=== PATIENT | male | born 1935 | race Caucasian/White ===

== ENCOUNTER → 2016-09-15 | Day surgery (SDC) | payer MEDICARE, OTHER ==
[~2016-09-15] MED LIST: ALBUTEROL17 GM INH; ASPIRIN81 M2 PO; ATORVASTATIN CA20 MG PO; BENAZEPRIL HCL5 MG PO; BREO ELLIPTA 11 EACH INH; COMBIVENT U/D3 M1 INH; FENOFIBRATE48 MG PO; FENOGLIDE40 MG PO; FISH OIL500 M2 PO; GLIMEPIRIDE2 MG PO; GLUCOPHAGE500 M1 PO; HUMALOG MI100 UNIT/1 INJ; LASIX20 MG PO; LOVASTATIN20 M2 PO; MELATONIN1 MG PO; OXYGEN; PROAIR HFA8.5 GM INH; SPIRIVA18 MCG INH; TRAMADOL HCL50 M2 PO; TYLENOL325 M1 PO; ZANAFLEX2 M1 PO
--- NOTE | ~2016-09-15 | OR ---
Unit #: [id number] #: [id number] Patient: JEANIE NORRIS [id number] [address] [place], [place] [address] [id number] O MR#: [id number] NAME: JEANIE NORRIS. ROOM: Date of Procedure: 09/15/2016 Admission Date: 09/15/2016 Surgeon: Flip Dueñas M.D. : 1935 Attending Physician: Flip Dueñas M.D. Primary Care Physician: Adrianne Narvaez M.D. 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 PROCEDURE PERFORMED Stellate ganglion block with intravenous sedation and fluoroscopic guidance for needle localization. INDICATIONS FOR PROCEDURE The patient is a 81-year-old with previously mentioned diagnosis. Plan is for trial of stellate ganglion blocks to help address the symptoms affecting his upper extremity. This is a secondary issue with cervical radicular issues with that right arm as well, but I believe his CRPS is most significant component. The patient has failed conservative treatment. Plan is for trial of stellate ganglion blockade with continued range of motion and desensitization treatment. DESCRIPTION OF PROCEDURE The patient was placed in a supine position. Standard monitors were applied. 2 mg of Versed were given for sedation and anxiolysis, which were adequate. Vital signs remained stable. Sterile prep and drape then of the right aspect of the neck was performed. The skin overlying the C7 tubercle was localized with 1% lidocaine. A 22-gauge Quincke-point needle was advanced down to the tubercle. The patient had no complaints of pain or paresthesia. Needle was backed off few millimeters with negative intermittent aspiration and intermittent repositioning. A total a 10 mL of 0.25% bupivacaine were deposited. There was negative intermittent aspiration with injection every 2 mL. The patient tolerated the procedure otherwise well and was discharged to the recovery room in stable condition. Dictated by... Rohini Maloney/kendra TD: 09/15/2016 23:19 JOB #: [id number] Unit #: [id number] #: [id number] Patient: JEANIE NORRIS OPERATIVE REPORT X Flip Dueañs MD X PROCEDURE OPERATIVE NOTE
== END | disposition home or self-care (01) ==
LOC: CCSC 09:05
DX: G90.511 Complex regional pain syndrome I of right upper limb (principal); E11.9 Type 2 diabetes mellitus without complications; Z79.4 Long term (current) use of insulin; J44.9 Chronic obstructive pulmonary disease, unspecified
CPT/HCPCS: J2250

== ENCOUNTER → 2016-10-29 | Day surgery (SDC) | payer MEDICARE, OTHER ==
--- NOTE | ~2016-10-29 | OR ---
Unit #: [id number] #: [id number] Patient: JEANIE NORRIS [id number] [address] [address] [id number] O MR#: [id number] NAME: JEANIE NORRIS ROOM: Date of Procedure: 10/29/2016 Admission Date: 10/29/2016 Surgeon: Flip Dueñas M.D. : 1935 Attending Physician: Flip Dueñas M.D. Primary Care Physician: Julian Ferrer Jr., M.D. 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 POSTOPERATIVE DIAGNOSIS Complex regional pain syndrome of right upper extremity. PROCEDURE PERFORMED Stellate ganglion blockade with fluoroscopic guidance and intravenous sedation. 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 He has failed to settle with conservative treatment. The patient had trial of initial sympathetic block via stellate approach about 6 weeks ago. The patient did actually fairly well for about 3 weeks and then had returned to baseline. Typically patients with this do better with a series of injections. Hopefully, we will see better additive prolonged response with this. DESCRIPTION OF PROCEDURE The patient was placed in a supine position. Standard monitors were applied. A sterile prep of the right anterior aspect of his neck was performed. The skin then overlying the C6 tubercle was localized with 1% lidocaine. A 25-gauge Quincke point needle was then advanced down to the C6 tubercle backed over few millimeters with negative intermittent aspiration. A total a 10 mL of 0.25% bupivacaine were deposited. The patient tolerated the procedure otherwise well and was discharged to the recovery room in stable condition. Dictated by... Flip Dueñas M.D. LHP/kendra TD: 10/29/2016 08:38 JOB #: [id number] CC: [facility] Unit #: [id number] #: [id number] Patient: JEANIE NORRIS OPERATIVE REPORT Page 1 of 1 X Flip Dueñas MD X PROCEDURE OPERATIVE NOTE
== END | disposition home or self-care (01) ==
LOC: CCSC 06:55
DX: G90.511 Complex regional pain syndrome I of right upper limb (principal)
CPT/HCPCS: 82947; J2250

== ENCOUNTER → 2016-11-19 | Day surgery (SDC) | payer MEDICARE, OTHER ==
--- NOTE | ~2016-11-19 | OR ---
Unit #: [id number] #: [id number] Patient: JEANIE NORRIS [id number] [address] [place], [place] [address] [id number] O MR#: [id number] NAME: JEANIE NORRIS ROOM: Date of Procedure: 11/19/2016 Admission Date: 11/19/2016 Surgeon: Flip Dueñas M.D. : 1935 Attending Physician: Flip Dueñas M.D. Primary Care Physician: Julian Ferrer Jr., M.D. OPERATIVE REPORT PREOPERATIVE DIAGNOSES 1. Chronic regional pain syndrome, upper extremity. 2. Cervical disk herniation. POSTOPERATIVE DIAGNOSES 1. Chronic regional pain syndrome, upper extremity. 2. Cervical disk herniation. PROCEDURE PERFORMED Stellate ganglion injection with intravenous sedation and fluoroscopic guidance for needle localization. INDICATIONS FOR PROCEDURE The patient is a 81-year-old male with significant right upper extremity pain. This constellation of symptoms seem most consistent with CRPS diagnosis. He was given 2 stellate ganglion injections at this point over the last several weeks. He has increased range of motion. His fingers and the skin looks healthy. There was less hypersensitivity, but still has significant pain in his shoulder down to his elbow, may be overlapping symptoms associated with his cervical disk as well. We are going to proceed with a repeat stellate ganglion block at this point. Depending upon his response of the upper arm, we may look at a trial of epidural steroids. DESCRIPTION OF PROCEDURE The patient was placed in a supine position. Standard monitors were applied. 2 mg of Versed were given for sedation and anxiolysis, which were adequate. Vital signs remained stable. Sterile prep and drape then of the anterior aspect of the neck was performed on the right. The skin overlying the C6 tubercle was localized with 1% lidocaine. A 22-gauge Quincke point needle was then advanced to the C6 tubercle. Needle was backed over few millimeters. After negative intermittent aspiration, a total of 10 mL of 0.25% bupivacaine were deposited. The patient tolerated the procedure well and was discharged to the recovery room in stable condition. Dictated by... Flip Dueñas M.D. LHP/banl Unit #: [id number] #: [id number] Patient: JEANIE NORRIS TD: 11/20/2016 03:18 JOB #: [id number] OPERATIVE REPORT Page 1 of 1 X Flip Dueñas MD X PROCEDURE OPERATIVE NOTE
== END | disposition home or self-care (01) ==
LOC: CCSC 09:17
DX: G90.511 Complex regional pain syndrome I of right upper limb (principal); M50.20 Other cervical disc displacement, unspecified cervical region
CPT/HCPCS: J2250

== ENCOUNTER → 2016-12-10 | Day surgery (SDC) | payer MEDICARE, OTHER ==
--- NOTE | ~2016-12-10 | OR ---
Unit #: [id number] #: [id number] Patient: JEANIE NORRIS [id number] [address] [address] [id number] O MR#: [id number] NAME: JEANIE NORRIS ROOM: Date of Procedure: 12/10/2016 Admission Date: 12/10/2016 Surgeon: Flip Dueñas M.D. : 1935 Attending Physician: Flip Dueñas M.D. Primary Care Physician: Julian Ferrer Jr., M.D. OPERATIVE REPORT PREOPERATIVE DIAGNOSES 1. Cervical radiculopathy. 2. Neck pain. 3. Cervical disk disease. POSTOPERATIVE DIAGNOSES 1. Cervical radiculopathy. 2. Neck pain. 3. Cervical disk disease. PROCEDURE PERFORMED Cervical epidural steroid injection with fluoroscopic guidance for needle localization. HISTORY The patient is a 81-year-old male with significant right upper extremity pain following injury. Workup demonstrated preganglionic right C7-C8 nerve root injury degree of CRPS. This did not settle with prescription treatment for that including stellate block, so plan is for a trial epidural steroid injection. DESCRIPTION OF PROCEDURE The patient was placed in a seated position. Standard monitors were applied. Sterile prep and drape of the cervical area was performed. The skin then at the C6-C7 level was localized with 1% lidocaine. An 18-gauge [employer] needle was then advanced via loss of resistance technique and fluoroscopic guidance in toward the epidural space. After confirming proper positioning with fluoroscopy and radiographic contrast, 80 mg of Depo-Medrol and 2 mL of 0.25% bupivacaine were deposited. The patient tolerated the procedure otherwise well and was discharged to recovery room in stable condition. Dictated by... Flip Dueñas M.D. LHP/banl TD: 12/10/2016 10:51 JOB #: [id number] Unit #: [id number] #: [id number] Patient: JEANIE NORRIS OPERATIVE REPORT Page 1 of 1 X Flip Dueñas MD X PROCEDURE OPERATIVE NOTE
== END | disposition home or self-care (01) ==
LOC: CCSC 08:32
DX: G90.50 Complex regional pain syndrome I, unspecified (principal); M50.10 Cervical disc disorder with radiculopathy, unspecified cervical region
CPT/HCPCS: J1040; J2250